=== PATIENT | female | born 1965 | race Caucasian/White ===

== ENCOUNTER 2017-09-25 17:02 | Inpatient (IN) | payer OTHER ==
[~2017-09-25] VITALS: Ht 162.6 cm; Wt 107.9 kg
--- NOTE | ~2017-09-25 | PROC ---
[address] [address] PROCEDURE REPORT Name: CARROLL GUZMAN Room: [address] IN ..#: [id number] Admission: 09/25/17 Attend Phys: Raudel Frederick Discharge: Date of : 63 Report #: [id number] THIS REPORT FOR: //name// For GI procedure, please see the Provation report in Perceptive 7 content. By: 0645Medical Records Staff EDGAR /DAISY
[~2017-09-25 17:02] MED LIST: ACETAMINOPHEN-1 EAC1 PO; CIPRO500 MG PO; FLAGYL500 MG PO; HYDROCODONE-AP1 EAC6 PO; MIRALAX17 GM PO; PHENERGAN 25 MG25 M1 PO; SYNTHROID100 MCG PO
[2017-09-25 17:08] VITALS: BP 171/70
[2017-09-25] MEDS ORDERED: VITAMIN D1000 UNI1 PO (17:11)
[2017-09-25] MEDS ORDERED: ASPIR 8181 MG PO (17:11)
[2017-09-25] MEDS ORDERED: CALCIUM500 MG PO (17:12)
[2017-09-25 17:39] LABS: ABSOLUTE BASOPHILS 0.1 thou/uL (0.0-0.2); ABSOLUTE EOSINOPHILS 0.1 thou/uL (0.0-0.7); ABSOLUTE LYMPHOCYTES 2.4 thou/uL (0.8-5.3); ABSOLUTE MONOCYTES 0.9 thou/uL (0.0-1.2); ABSOLUTE NEUTROPHILS 9.6 thou/uL (1.6-8.1); BASOPHILS 0.5 %; EOSINOPHILS 0.9 %; HEMATOCRIT 50.2 % (37.0-47.0); HEMOGLOBIN 16.8 gm/dL (12.0-15.0); LYMPHOCYTES 18.5 %; MCH 29.9 pg (26.0-34.0); MCHC 33.5 g/dL (28.0-37.0); MCV 89.4 fL (80.0-100.0); MPV 7.2 fl. (7.2-11.1); NUCLEATED RBCS 0 /100WBC; PLATELET COUNT* 294 thou/uL (150-400); POLYS 73.1 %; RBC 5.61 mil/uL (4.20-5.00); RDW-CV 13.6 % (10.5-14.5); WBC 13.2 thou/uL (4.0-11.0)
[2017-09-25 17:47] LABS: ANION GAP 15 mmol/L (7-16); BUN 14 mg/dL (7-18); CALCIUM 9.1 mg/dL (8.5-10.1); CHLORIDE 101 mmol/L (98-107); CO2 22 mmol/L (21-32); CREATININE 1.3 mg/dL (0.6-1.3); GLUCOSE 93 mg/dL (70-99); POTASSIUM 3.2 mmol/L (3.5-5.1); SODIUM 138 mmol/L (136-145)
[2017-09-25 17:54] LABS: ALBUMIN 4.1 g/dL (3.4-5.0); ALKALINE PHOSPHATASE 82 U/L (46-116); LIPASE 145 U/L (73-393); SGOT 20 U/L (15-37); SGPT 29 U/L (30-65); TOTAL BILIRUBIN 0.5 mg/dL (<0.1-1.0); TOTAL PROTEIN 8.4 g/dL (6.4-8.2); TROPONIN-I LEVEL <0.06 ng/mL (<0.06)
[2017-09-25 20:22] VITALS: BP 135/87
[2017-09-25 20:27] VITALS: BP 135/80
--- NOTE | 2017-09-26 09:31 | EKG ---
[place] [address] ELECTROCARDIOGRAM REPORT Name: CARROLL GUZMAN Room: [address] ADM IN .R.#: [id number] Admission: 09/25/17 Attend Phys: Raudel Frederick Discharge: Date of : 63 Report #: [id number] THIS REPORT FOR: //name// [facility] ED Test Date: 2017-09-25 Test Time: 17:40:32 Pat Name: CARROLL GUZMAN Department: Room: [facility] Gender: F Entry Level Manufacturing Engineer: Lauren RENDON : 1965 Requested By: Gokul Shelton Order Number: [id number] MD: Walter Figueredo Measurements Intervals [place] Rate: 76 P: 35 ME: 151 QRS: -14 QRSD: 88 T: 5 QT: 428 QTc: 482 Interpretive Statements Sinus rhythm consider Inferior infarct, old No previous ECG available for comparison Electronically Signed On 09-26-2017 9:31:52 GRINDER SET UP OPERATOR THREAD by Walter Figueredo [email or web address] <ELECTRONICALLY SIGNED> By: Walter Figueredo MD, [facility] 09/26/17 0931 174 174 Walter Figueredo MD, FAC /EPI
[2017-09-26 15:30] VITALS: BP 122/62
[2017-09-27] VITALS: BP 136/67
[2017-09-27 04:33] LABS: HEMOGLOBIN 15.9 gm/dL (12.0-15.0); MCH 29.3 pg (26.0-34.0); MCHC 32.3 g/dL (28.0-37.0); MCV 90.7 fL (80.0-100.0); MPV 7.6 fl. (7.2-11.1); RBC 5.4 mil/uL (4.20-5.00); RDW-CV 13.4 % (10.5-14.5); WBC 20.9 thou/uL (4.0-11.0)
[2017-09-27 04:49] LABS: ALBUMIN 3.3 g/dL (3.4-5.0); CREATININE 1.1 mg/dL (0.6-1.3); POTASSIUM 3.8 mmol/L (3.5-5.1); TOTAL BILIRUBIN 0.3 mg/dL (<0.1-1.0); TOTAL PROTEIN 6.5 g/dL (6.4-8.2)
[2017-09-27 09:10] VITALS: BP 138/84
[2017-09-27 15:51] VITALS: BP 152/100
[2017-09-27 15:54] LABS: URINE BILIRUBIN 1+ (Negative); URINE BLOOD NEGATIVE (Negative); URINE CLARITY CLEAR; URINE COLOR BROWN; URINE GLUCOSE-RANDOM NEGATIVE (Negative); URINE KETONES TRACE (Negative); URINE LEUKOCYTES-REFLEX NEGATIVE (Negative); URINE NITRITE-REFLEX POSITIVE (Negative); URINE PROTEIN NEGATIVE (Negative); URINE SPECIFIC GRAVITY >= 1.030 (1.005-1.030)
[2017-09-27 15:55] LABS: ICTOTEST (BILI CONFIRMATORY) Negative (Negative)
[2017-09-27 15:59] LABS: SQUAMOUS >10 Many /LPF (0-3)
[2017-09-27 16:00] LABS: BACTERIA-REFLEX None Seen /HPF (None Seen); CALCIUM OXALATE >10 Many /LPF (None Seen); CASTS None Seen /LPF (None Seen); MUCUS 0-3 Light strn/LPF (None Seen); URINE RBC None Seen /HPF (0-2); URINE WBC-REFLEX None Seen /HPF (0-5)
[2017-09-27 20:00] VITALS: BP 127/77
[2017-09-28 04:00] VITALS: BP 153/77
[2017-09-28 04:59] LABS: HEMATOCRIT 45.7 % (37.0-47.0); MCH 29.7 pg (26.0-34.0); MCHC 32.9 g/dL (28.0-37.0); MCV 90.4 fL (80.0-100.0); MPV 7.9 fl. (7.2-11.1); RBC 5.06 mil/uL (4.20-5.00); RDW-CV 13.6 % (10.5-14.5); WBC 16.3 thou/uL (4.0-11.0)
[2017-09-28 05:37] LABS: ALBUMIN 2.9 g/dL (3.4-5.0); POTASSIUM 3.8 mmol/L (3.5-5.1); TOTAL BILIRUBIN 0.4 mg/dL (<0.1-1.0); TOTAL PROTEIN 5.7 g/dL (6.4-8.2)
[2017-09-28 09:10] VITALS: BP 141/84
[2017-09-28 16:31] VITALS: BP 146/80
[2017-09-28 20:45] VITALS: BP 128/67
[2017-09-29 08:50] VITALS: BP 142/81
[2017-09-29 17:30] VITALS: BP 104/67
[2017-09-29 20:00] VITALS: BP 147/86
[2017-09-30 15:35] VITALS: BP 149/97
[2017-09-30 15:50] VITALS: BP 142/85
[2017-09-30 19:20] VITALS: BP 127/78
[2017-10-01 11:25] VITALS: BP 127/78
[2017-10-01 18:29] VITALS: BP 184/96
[2017-10-01 19:40] VITALS: BP 128/67
[2017-10-02 07:30] VITALS: BP 130/68
[2017-10-02 15:27] LABS: HEMATOCRIT 44.5 % (37.0-47.0); HEMOGLOBIN 15.1 gm/dL (12.0-15.0); MCH 29.9 pg (26.0-34.0); MCHC 33.9 g/dL (28.0-37.0); MCV 88.3 fL (80.0-100.0); MPV 7.3 fl. (7.2-11.1); RBC 5.04 mil/uL (4.20-5.00); RDW-CV 13.2 % (10.5-14.5); WBC 10.9 thou/uL (4.0-11.0)
[2017-10-02 15:31] LABS: CALCIUM 8.3 mg/dL (8.5-10.1); CREATININE 0.8 mg/dL (0.6-1.3); POTASSIUM 3.1 mmol/L (3.5-5.1)
[2017-10-02 16:00] VITALS: BP 139/80
[2017-10-02 23:36] VITALS: BP 128/62
[2017-10-03 07:40] VITALS: BP 130/83
[2017-10-03] MEDS ORDERED: PROTONIX40 M2 PO (11:58)
[2017-10-03] MEDS ORDERED: CARAFATE 11 GM/10 M1 PO (12:00)
[2017-10-03] MEDS ORDERED: FLUCONAZOLE 10100 MG PO (12:05)
--- NOTE | 2017-10-03 14:33 | S ---
[place] [address] SURGICAL PATH RPT PROCEDURE Name: JANEL GONZALEZ Room: [address] IN .R.#: [id number] Admission: 09/25/17 Date of : 63 Discharge: Report #: [id number] Path Case #: [id number] PATHOLOGY REPORT COLLECTION DATE: 10/01/2017 RECEIVED DATE: 10/02/2017 SUBMITTING PHYS: Dr. Diana Aguilar OTHER PHYS: Dr. Jonathon Roldan SPECIMEN(S) RECEIVED: A.Duodenal biopsies B.Esophageal biopsies * * * * * * * * * * * * FINAL DIAGNOSIS: A. Duodenal biopsies: - Moderate non-specific active duodenitis, negative for granulomas and dysplasia. B. Esophageal biopsies: - Mild chronic esophagitis typical of reflux, negative for dysplasia. (THEE:[facility]; 10/03/2017) PATHOLOGIST: Kaden Helton M.D. REPORT ELECTRONICALLY SIGNED BY: Kaden Helton M.D. DATE/TIME: 10/03/2017 14:32 * * * * * * * * * * * * GROSS PATHOLOGY: A. Received in formalin labeled "Janel Gonzlaez, duodenal biopsies rule out duodenitis," are 4 segments of daniel soft tissue measuring 0.8 x 0.5 x 0.1 cm in aggregate dimensions and ranging from 0.3 to 0.5 cm in maximum dimension. The specimen is submitted entirely in cassette A1. B. Received in formalin labeled "Janel Gonzalez, esophageal biopsies rule out dysplasia," is a segment of daniel soft tissue measuring 0.5 x 0.3 x 0.1 cm in maximum dimension. The specimen is submitted entirely in cassette B1. (SDY; 10/02/2017) CLINICAL HISTORY: 1. Rule out duodenitis 2. Rule out dysplasia INITIAL CPT CODE(S): A; 05329 B; [address] [place] [address] SURGICAL PATH RPT PROCEDURE Name: JANEL GONZALEZ Room: [address] IN [facility].#: [id number] Admission: 09/25/17 Date of : 63 Discharge: Report #: [id number] Path Case #: [id number] Professional services performed by [facility] at [facility] [address] [place] [address] Technical services performed by [facility] at [address] [place] [address], [address] [address]. [facility] [address] [place] [address] PHONE: [phone] DIRECTOR: Johnny Juarez M.D. * * * END OF REPORT * * *
[2017-10-03 16:25] VITALS: BP 117/61
[2017-10-04 00:07] VITALS: BP 144/81
[2017-10-04 14:40] VITALS: BP 128/69
[2017-10-04 17:04] VITALS: BP 113/62
[2017-10-04 19:40] VITALS: BP 118/67
[2017-10-05 08:14] VITALS: BP 102/58
[2017-10-05] MEDS ORDERED: TRANSDERM-SCOP1 EACH TRANSDERM (13:47)
[2017-10-05 13:51] VITALS: BP 102/58
[2017-10-05] MEDS ORDERED: REGLAN 10 MG TA10 MG PO (14:19)
--- NOTE | 2017-10-10 14:45 | CON ---
[address] [address] CONSULTATION Name: MEGANCARROLL RIDER Room: [address] IN M.R.#: [id number] Admission: 09/25/17 Attend Phys: Raudel Frederick Discharge: 10/05/17 Date of : 63 Report #: [id number] THIS REPORT FOR: //name// CC: KALI physician/PCP Jonathon Roldan DICTATED BY: Hannah Otto [facility] DATE OF SERVICE: 09/26/2017 The patient currently does not have a primary care physician. Please note at the time of this dictation, the patient was seen and physically examined by myself. REASON FOR CONSULTATION: Abdominal pain, diarrhea. HISTORY OF PRESENT ILLNESS: This is a 51-year-old female who presented to the Emergency Room with having abdominal pain and some watery diarrhea along with some nausea and vomiting noted. She states initially a couple of weeks ago she got [place] food that she thinks she had food poisoning, which started all of her symptoms. She then went on a bland diet for several days, then when she ate a normal meal last she started developing similar symptoms again and went to the ER at [place] and where she was told that she had diverticulitis and was treated and sent home. She states she was taking her antibiotics of Cipro and Flagyl over that time period, but just was not eating very much during that. She states she had increasing nausea, but no vomiting, but then over the weekend, she had increasing left lower quadrant pain radiating to the right and a lot of bloating. She states her last bowel movement was at a.m., normally she states she goes fairly regularly, but she has not done so since that time. The patient states normally her bowels will move every other day or so, but this is the longest it has ever been that they have not moved. The patient has never had a screening colonoscopy done prior to this either. ALLERGIES: PENICILLIN. MEDICATIONS: From home include Synthroid, vitamin D, aspirin, calcium, Cipro, Flagyl, MiraLax and promethazine. PAST MEDICAL HISTORY: History of hypothyroidism and vitamin D deficiency. PAST SURGICAL HISTORY: Tonsillectomy. FAMILY HISTORY: Negative for any GI or female cancers. SOCIAL HISTORY: The patient lives at home. Denies any alcohol, [place] [address] CONSULTATION Name: CARROLL GUZMAN Room: [address]#: [id number] Admission: 09/25/17 Attend Phys: Raudel Frederick Discharge: 10/05/17 Date of : 63 Report #: [id number] illegal drug use at this time. REVIEW OF SYSTEMS: Twelve-point review of systems is essentially negative except what is mentioned in the HPI. PHYSICAL EXAMINATION: VITAL SIGNS: Temperature 37.4, pulse 103, respirations 22, blood pressure 135/80. HEART: Regular rate and rhythm. LUNGS: Clear. ABDOMEN: Soft, positive bowel sounds in all 4 quadrants with some slight tenderness noted more in the left lower quadrant area. LABORATORY DATA: Hemoglobin is 16.8, hematocrit is 50.2, white count is 13.2, platelets 294. Sodium 138, potassium 3.2, chloride 101, CO2 of 22, BUN is 14, creatinine is 1.3 with a GFR of 43 and glucose of 93. CT of the abdomen and pelvis shows a large amount of stool in the ascending, hepatic flexure and proximal transverse colon with also noted surrounding wall thickening in the short segment of the sigmoid colon. IMPRESSION: 1. Abdominal pain. 2. Constipation. 3. Abnormal CT findings consistent possibly with colonic ischemia, some leukocytosis. 4. Hypothyroidism. PLAN: 1. Continue her Cipro and Flagyl. 2. Advance diet as tolerated. 3. We will check TSH. 4. We will consider outpatient colonoscopy in 6 weeks to check healing and for screening purposes. Thank you for allowing us to participate in this patient's care. Please do not hesitate to call with any questions in regard to this consult. ADDENDUM This is a 51-year-old female with remote history of colonoscopy, who presented to Emergency Room a week ago with severe abdominal pain. At that time, she was diagnosed with diverticulitis and was placed on Cipro and Flagyl. The patient reports that she was not doing well and also was constipated. She presented today to [place] and was admitted with segmental colitis. She also had leukocytosis with WBC of 13,000. She has been started [place] [address] CONSULTATION Name: MEGANCARROLL ADRY Room: [address] [place] [facility].#: [id number] Admission: 09/25/17 Attend Phys: Raudel Frederick Discharge: 10/05/17 Date of : 63 Report #: [id number] She had small bowel movements, which was liquidy. She denies any hematochezia or melena. The patient's abdomen is soft, nontender, nondistended. We will go ahead and continue IV antibiotics. I will also start her on low residue diet. We will put her on MiraLax 17 grams p.o. at bedtime and consider a colonoscopy in 4-6 weeks. The patient is agreeable with the plan. <ELECTRONICALLY SIGNED> By: Diana Aguilar MD 10/10/17 1445 [id number] Aguilar MD /marilu
== END 2017-10-05 14:59 | disposition home or self-care (01) | DRG 371 ==
LOC: M.ERS 17:02 → M.3W 18:41 → M.TBA-ER 18:41 → M.3W 20:09
PROVIDERS: Family Medicine; Nurse Practitioner Adult Health; ADMIT Internal Medicine
PROC: 0DB58ZX Excision of Esophagus, Via Natural or Artificial Opening Endoscopic, Diagnostic (ICD-10-PCS; principal; 2017-10-01)
PROC: 0DB98ZX Excision of Duodenum, Via Natural or Artificial Opening Endoscopic, Diagnostic (ICD-10-PCS; principal; 2017-10-01)
DX: A04.9 Bacterial intestinal infection, unspecified (principal); K55.039 Acute (reversible) ischemia of large intestine, extent unspecified; K57.80 Diverticulitis of intestine, part unspecified, with perforation and abscess without bleeding; R65.10 Systemic inflammatory response syndrome (SIRS) of non-infectious origin without acute organ dysfunction; B37.0 Candidal stomatitis; E66.9 Obesity, unspecified; E03.9 Hypothyroidism, unspecified; K31.84 Gastroparesis; K21.0 Gastro-esophageal reflux disease with esophagitis; D72.829 Elevated white blood cell count, unspecified; K59.00 Constipation, unspecified; K44.9 Diaphragmatic hernia without obstruction or gangrene; K31.89 Other diseases of stomach and duodenum; Z90.49 Acquired absence of other specified parts of digestive tract; Z90.721 Acquired absence of ovaries, unilateral; Z88.0 Allergy status to penicillin